=== PATIENT | female | born 1985 | race Native Hawaiian/Other Pacific Islander ===

== ENCOUNTER 2017-10-11 20:33 | Emergency (ER) | payer OTHER ==
[2017-10-11 23:17] LABS: BASOPHILS # (AUTO) 0.1 10^3/uL (0.0-0.1); BASOPHILS % (AUTO) 0.5 %; EOSINOPHILS # (AUTO) 0.1 10^3/uL (0.0-0.7); EOSINOPHILS % (AUTO) 0.5 %; HCT - HEMATOCRIT 37.8 % (37.0-47.0); HGB - HEMOGLOBIN 12.9 g/dL (12.0-16.0); LYMPHOCYTES # (AUTO) 2.3 10^3/uL (1.5-3.5); LYMPHOCYTES % (AUTO) 16.7 %; MEAN CORPUSCULAR HEMOGLOBIN 31.9 pg (27.0-31.0); MEAN CORPUSCULAR HGB CONC 34.1 g/dL (32.0-36.0); MEAN CORPUSCULAR VOLUME 93.4 fL (81.0-99.0); MEAN PLATELET VOLUME 9.1 fL (7.9-10.8); MONOCYTES # (AUTO) 1.2 10^3/uL (0.0-1.0); NEUTROPHILS % (AUTO) 73.3 %; RED BLOOD COUNT 4.05 10^6/uL (4.20-5.40); RED CELL DISTRIBUTION WIDTH 11.6 % (12.0-15.0); UNCORRECTED WHITE BLOOD COUNT 13.6 x10^3/uL; WHITE BLOOD COUNT 13.6 x10^3/uL (4.8-10.8)
[2017-10-11 23:27] LABS: ALBUMIN/GLOBULIN RATIO 1.4 (1.0-2.2); BILIRUBIN,TOTAL 0.5 mg/dL (0.2-1.0); CREATININE 0.6 mg/dL (0.4-1.0); POTASSIUM 3.4 mmol/L (3.5-5.0)
[2017-10-11] MEDS ORDERED: SODIUM CHLORIDE 0.9% 1,000 ML IV ONE (23:27)
[2017-10-11] MEDS ORDERED: ACETAMINOPHEN 500 MG TABLET PO STA (23:27)
[2017-10-11] MEDS ORDERED: ACETAMINOPHEN 500 MG TABLET PO ONE (23:33)
[2017-10-11 23:39] LABS: BILIRUBIN,URINE NEGATIVE (NEGATIVE); PH,URINE 6.5 PH (5.0-7.5)
[2017-10-11 23:50] LABS: HCG UR QUAL NEGATIVE; UA w/ MICROSCOPIC CHARGE YES; UR CULTURE IF IND NOT INDICATED; WBC,URINE 0-3 /HPF (0-5)
[2017-10-12] MEDS ORDERED: KETOROLAC 60 MG/2 ML VIAL IVP STA (00:07)
[2017-10-12] MEDS ORDERED: KETOROLAC 15 MG/ML VIAL ONE (00:15)
--- NOTE | 2017-10-12 00:17 | ED Physician Documentation ---
History of Present Illness - Stated complaint Stated Complaint: CHILLS,ACHES - Chief complaint Chief Complaint: General - History obtained from History obtained from: Patient, Family - History of Present Illness Timing: Yesterday - Additonal information Additional information: Patient is a 32 year old female with no significant past medical history who is presenting to the emergency department for pain in her axilla, fevers and chills. 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 Patient states that she went to lay down and when she woke up she was sweating and had the chills. Patient also states that she has had swelling and tenderness in her left armpit. Patient states that she just noticed it today. Review of Systems Constitutional: reports: Fever, Chills, Myalgias Ears: denies: Ear pain, Drainage/discharge, Tinnitus/ringing, Foreign body Nose: denies: Rhinorrhea / runny nose, Congestion Throat: denies: Dental pain / toothache, Sore throat Cardiac: denies: Chest pain / pressure, Palpitations Respiratory: denies: Cough, Wheezing GI: reports: Nausea. denies: Vomiting, Constipation, Diarrhea : denies: Dysuria, Frequency, Hesitancy Skin: denies: Rash, Lesions Musculoskeletal: reports: Back pain, Extremity pain, Joint pain. denies: Neck pain Neurologic: reports: Generalized weakness, Headache. denies: Focal weakness, Syncope, Seizure, Confused, Altered mental status, Head injury, LOC Immunocompromised: denies: Immunocompromised PD PAST MEDICAL HISTORY - Past Medical History Past Medical History: Yes Respiratory: Asthma Psych: Anxiety - Past Surgical History Past Surgical History: No - Present Medications Home Medications: Ambulatory Orders Medication Instructions Recorded Confirmed No Known Home Medications [No 10/11/17 10/11/17 Known Home Medications] - Allergies Allergies/Adverse Reactions: Allergies Allergy/AdvReac Type Severity Reaction Status Date / Time sulfamethoxazole Allergy Hives Verified 10/11/17 20:47 [From Bactrim] trimethoprim [From Bactrim] Allergy Hives Verified 10/11/17 20:47 - Social History Does the pt smoke?: Yes Smoking Status: Current every day smoker Does the pt drink ETOH?: Yes Does the pt have substance abuse?: No - Immunizations Immunizations are current?: Yes - POLST Patient has POLST: No PD ED PE NORMAL - Vitals Vital signs reviewed: Yes - General General: Alert and oriented X 3 - HEENT HEENT: Atraumatic, PERRL, Pharynx benign, Dentition benign - Neck Neck: Supple, no meningeal sign - Cardiac Cardiac: RRR, No murmur - Respiratory Respiratory: No respiratory distress, Clear bilaterally - Abdomen Abdomen: Soft, Non tender, Non distended - Derm Derm: Normal color, Warm and dry, No rash - Neuro Neuro: Alert and oriented X 3, No motor deficit, No sensory deficit, Normal speech Eye Opening: Spontaneous Motor: Obeys Commands Verbal: Oriented GCS Score: 15 - Psych Psych: Normal mood PD ED PE EXPANDED - Neck Neck: Adenopathy - Extremities Extremities: Tenderness (tenderness and mild swelling in left axillary region), Other Results - Vitals Vitals: Vital Signs - 24 hr 10/11/17 10/11/17 10/11/17 20:48 22:45 22:51 Temperature 37.3 C 37.6 C H Heart Rate 123 H 92 87 Respiratory 18 22 23 Rate Blood Pressure 127/82 H 113/77 112/73 O2 Saturation 100 99 100 10/12/17 10/12/17 00:12 00:27 Temperature 37.2 C 36.9 C Heart Rate 82 76 Respiratory 17 14 Rate Blood Pressure 112/51 L 112/58 L O2 Saturation 99 100 Oxygen O2 Source Room air - Labs Labs: Laboratory Tests 10/11/17 10/11/17 10/11/17 11:05 11:05 23:07 WBC 13.6 H RBC 4.05 L Hgb 12.9 Hct 37.8 MCV 93.4 MCH 31.9 H MCHC 34.1 RDW 11.6 L Plt Count 227 MPV 9.1 Neut # 10.0 H Lymph # 2.3 [place] # 1.2 H Eos # 0.1 Baso # 0.1 Absolute Nucleated RBC 0.00 Nucleated RBC % 0.0 Sodium 137 Potassium 3.4 L Chloride 105 Carbon Dioxide 22 Anion Gap 10.0 BUN 7 Creatinine 0.6 Estimated GFR (MDRD) 116 Glucose 106 H Calcium 9.0 Total Bilirubin 0.5 AST 19 ALT 22 Alkaline Phosphatase 34 L Total Protein 7.0 Albumin 4.1 Globulin 2.9 Albumin/Globulin Ratio 1.4 Lipase 26 Urine Color Urine Clarity Urine pH Ur Specific [place] Urine Protein Urine Glucose (UA) Urine Ketones Urine Occult Blood Urine Nitrite Urine Bilirubin Urine Urobilinogen Ur Leukocyte Esterase Urine RBC Urine WBC Ur Squamous Epith Cells Urine Bacteria Ur Microscopic Review Urine Culture Comments Urine HCG, Qual Influenza A (Rapid) Negative Influenza B (Rapid) Negative Influenza Types A,B Ag - 10/11/17 23:14 WBC RBC Hgb Hct MCV MCH MCHC RDW Plt Count MPV Neut # Lymph # [place] # Eos # Baso # Absolute Nucleated RBC Nucleated RBC % Sodium Potassium Chloride Carbon Dioxide Anion Gap BUN Creatinine Estimated GFR (MDRD) Glucose Calcium Total Bilirubin AST ALT Alkaline Phosphatase Total Protein Albumin Globulin Albumin/Globulin Ratio Lipase Urine Color YELLOW Urine Clarity CLEAR Urine pH 6.5 Ur Specific [place] <=1.005 Urine Protein NEGATIVE Urine Glucose (UA) NEGATIVE Urine Ketones NEGATIVE Urine Occult Blood SMALL H Urine Nitrite NEGATIVE Urine Bilirubin NEGATIVE Urine Urobilinogen 0.2 (NORMAL) Ur Leukocyte Esterase NEGATIVE Urine RBC 0-5 Urine WBC 0-3 Ur Squamous Epith Cells RARE Squamous Urine Bacteria None Seen Ur Microscopic Review INDICATED Urine Culture Comments NOT INDICATED Urine HCG, Qual NEGATIVE Influenza A (Rapid) Influenza B (Rapid) Influenza Types A,B Ag PD MEDICAL DECISION MAKING - ED course Complexity details: reviewed old records, reviewed results, re-evaluated patient , considered differential, d/w patient, d/w family ED course: Patient was seen and examined at bedside. IV access was gained and labs were drawn. IV fluid bolus was started. Patient was treated with tylenol. Patient' s diagnostics were relatively unremarkable. Patient stated that she still had a headache, and was treated with toradol which resolved the pain. Patient's symptoms were likely viral in nature. patient required no further work up and was stable for discharge with outpatient follow up. Departure - Departure Disposition: 01 Home, Self Care Clinical Impression: Viral syndrome Condition: Good Instructions: ED Viral Syndrome Follow-Up: Devi Avina ARNP [Primary Care Provider] - Comments: Your symptoms today are likely secondary to a virus. It is very important that you stay well hydrated and get plenty of rest. You should drink at least 80oz of water/gatorade a day. you should alternate between motrin and tylenol as needed for headaches or fevers. You should follow up with your doctor if your symptoms persist more than the next few days. You can return to the emergency department at any time for new, worsening or uncontrollable symptoms. Forms: Activity restrictions Discharge Date/Time: 10/12/17 00:28
[2017-10-12 00:28] VITALS: BP 112/58
== END 2017-10-12 00:28 | disposition home or self-care (01) ==
LOC: ED 20:33
DX: B34.9 Viral infection, unspecified (principal); F17.200 Nicotine dependence, unspecified, uncomplicated
CPT/HCPCS: 36415; 80053; 81001; 81025; 83690; 85025; 87275; 87276; 96361; 96374; 99284; A9270; 81003; 87086

== ENCOUNTER 2018-06-28 19:20 | Emergency (ER) | payer OTHER ==
[2018-06-28 20:16] LABS: BILIRUBIN,URINE NEGATIVE (NEGATIVE); GLUCOSE, URINE (UA) NEGATIVE (NEGATIVE); KETONES,URINE (UA) NEGATIVE (NEGATIVE); LEUKOCYTE ESTERASE, URINE MODERATE (NEGATIVE); NITRITE,URINE NEGATIVE (NEGATIVE); OCCULT BLOOD,URINE MODERATE (NEGATIVE); PROTEIN,URINE NEGATIVE (NEGATIVE); UROBILINOGEN,URINE 0.2 (NORMAL) E.U./dL (NORMAL)
[2018-06-28 20:28] LABS: CLARITY,URINE HAZY (CLEAR); HCG UR QUAL NEGATIVE
[2018-06-28 20:29] LABS: BACTERIA,URINE Many /HPF (None Seen); RBC,URINE TNTC /HPF (0-5); SQUAMOUS EPITHELIAL CELL,UR FEW Squamous (<= Few)
--- NOTE | 2018-06-28 20:47 | ED Physician Documentation ---
PD HPI FEMALE - Stated complaint Stated Complaint: FEMALE - Chief complaint Chief Complaint: UTI - History obtained from History obtained from: Patient - History of Present Illness Timing - onset: How many hours ago (2) Timing - details: Abrupt onset Associated symptoms: Dysuria, Urinary frequency. No: Fever Contributing factors: No: Recently seen: Not recently seen - Additional information Additional information: recent UTI, completed 5 days keflex 3 days ago, symptoms returned 2 hours [employer] Review of Systems Constitutional: denies: Fever GI: reports: Reviewed and negative : reports: Dysuria, Frequency. denies: Vaginal bleeding, Now EGA PD PAST MEDICAL HISTORY - Past Medical History Respiratory: Asthma Psych: Anxiety - Past Surgical History Past Surgical History: No - Present Medications Home Medications: Ambulatory Orders Medication Instructions Recorded Confirmed Ciprofloxacin HCl [Cipro] 500 mg PO BID #13 tablet 06/28/18 Phenazopyridine [Pyridium] 200 mg PO TID 3 Days tablet 06/28/18 - Allergies Allergies/Adverse Reactions: Allergies Allergy/AdvReac Type Severity Reaction Status Date / Time nitrofurantoin Allergy Unknown Verified 06/28/18 19:54 sulfamethoxazole Allergy Hives Verified 10/11/17 20:47 [From Bactrim] trimethoprim [From Bactrim] Allergy Hives Verified 10/11/17 20:47 - Social History Does the pt smoke?: Yes Smoking Status: Current every day smoker Does the pt drink ETOH?: Yes Does the pt have substance abuse?: No - Immunizations Immunizations are current?: Yes - POLST Patient has POLST: No PD ED PE NORMAL - Vitals Vital signs reviewed: Yes - General General: Alert and oriented X 3, No acute distress, Well developed/nourished - Abdomen Abdomen: Soft, Non tender - Back Back: No CVA TTP Results - Vitals Vitals: Oxygen O2 Source Room air - Labs Labs: Microbiology 06/28/18 20:00 Urine Culture - Final Urine,Clean Catch Escherichia Coli Laboratory Tests 06/28/18 20:00 Urine Color YELLOW Urine Clarity HAZY Urine pH 6.0 Ur Specific [place] <=1.005 Urine Protein NEGATIVE Urine Glucose (UA) NEGATIVE Urine Ketones NEGATIVE Urine Occult Blood MODERATE H Urine Nitrite NEGATIVE Urine Bilirubin NEGATIVE Urine Urobilinogen 0.2 (NORMAL) Ur Leukocyte Esterase MODERATE H Urine RBC TNTC H Urine WBC >25 H Ur Squamous Epith Cells FEW Squamous Urine Bacteria Many H Ur Microscopic Review INDICATED Urine Culture Comments INDICATED Urine HCG, Qual NEGATIVE PD MEDICAL DECISION MAKING - ED course Complexity details: reviewed results, considered differential, d/w patient - Sepsis Event Vital Signs: Oxygen O2 Source Room air Departure - Departure Disposition: Home, Self Care Clinical Impression: Urinary tract infection Condition: Good Instructions: ED UTI Cystitis Female Follow-Up: ASHLEY Wetzel [Provider Group] Prescriptions: Ciprofloxacin HCl [Cipro] 500 mg PO BID #13 tablet Phenazopyridine [Pyridium] 200 mg PO TID 3 Days tablet Discharge Date/Time: 06/28/18 21:24
[2018-06-28] MEDS ORDERED: PHENAZOPYRIDINE 100 MG TABLET PO STA ×2 (21:04→21:05)
[2018-06-28] MEDS ORDERED: LIDOCAINE 1% 2 ML VIAL SUBQ ONE (21:04)
[2018-06-28] MEDS ORDERED: cefTRIAXone 1 GM VIAL IM STA (21:04)
[2018-06-28] MEDS ORDERED: CIPROFLOXACIN 250 MG TABLET PO STA (21:04)
[2018-06-28 21:22] VITALS: BP 122/78
== END 2018-06-28 21:24 | disposition home or self-care (01) ==
LOC: ED 19:20
DX: N39.0 Urinary tract infection, site not specified (principal); F17.200 Nicotine dependence, unspecified, uncomplicated
CPT/HCPCS: 81001; 81025; 87086; 87181; 96372; 99283; A9270; 81003

== ENCOUNTER 2019-09-18 21:25 | Emergency (ER) | payer OTHER ==
[2019-09-18 21:39] VITALS: BP 130/86
--- NOTE | 2019-09-18 21:53 | ED Physician Documentation ---
PD HPI HEENT - Stated complaint Stated Complaint: BUG IN EAR? EAR PX - Chief complaint Chief Complaint: Heent - History obtained from History obtained from: Patient - History of Present Illness Timing - onset: Last night Timing - details: Abrupt onset Pain level now: 0 Location: Left ear Similar symptoms before: Has not had sx before - Additional information Additional information: last night while asleep in bed, patient was awoken by sudden onset sensation of something in her left ear. She felt as though it was moving, s/o insect. She put olive oil in her left ear with the intention of "drowning" the possible insect, and this had the desired effect of stopping the sensation of a moving FB in the ear. She presents at this time to have ear examined due to concern that there might still be something in the ear canal. Review of Systems Ears: reports: Foreign body (resolved). denies: Loss of hearing, Ear pain, Drainage/discharge, Tinnitus/ringing PD PAST MEDICAL HISTORY - Past Medical History Respiratory: Asthma Psych: Anxiety - Past Surgical History Past Surgical History: No - Present Medications Home Medications: Ambulatory Orders Medication Instructions Recorded Confirmed Tretinoin Microspheres [Retin-A 20 gm TP 09/18/19 Micro] - Allergies Allergies/Adverse Reactions: Allergies Allergy/AdvReac Type Severity Reaction Status Date / Time nitrofurantoin Allergy Unknown Verified 09/18/19 21:39 sulfamethoxazole Allergy Hives Verified 09/18/19 21:39 [From Bactrim] trimethoprim [From Bactrim] Allergy Hives Verified 09/18/19 21:39 - Social History Does the pt smoke?: Yes Smoking Status: Current every day smoker Does the pt drink ETOH?: Yes Does the pt have substance abuse?: No - Immunizations Immunizations are current?: Yes - POLST Patient has POLST: No PD ED PE NORMAL - Vitals Vital signs reviewed: Yes - General General: Alert and oriented X 3, No acute distress, Well developed/nourished - HEENT HEENT: Ears normal Results - Vitals Vitals: Vital Signs - 24 hr 09/18/19 21:35 Temperature 36.6 C Heart Rate 87 Respiratory 18 Rate Blood Pressure 130/86 H O2 Saturation 100 Oxygen O2 Source Room air PD MEDICAL DECISION MAKING - ED course Complexity details: considered differential, d/w patient ED course: No insect or other FB in left ear canal; there is good visualization of the entire canal and TM. Departure - Departure Disposition: 01 Home, Self Care Clinical Impression: Foreign body sensation in left ear canal Condition: Good Instructions: ED Foreign Body Ear Canal Discharge Date/Time: 09/18/19 22:20
== END 2019-09-18 22:20 | disposition home or self-care (01) ==
LOC: ED 21:25
DX: T16.2XXA Foreign body in left ear, initial encounter (principal); X58.XXXA Exposure to other specified factors, initial encounter; F17.200 Nicotine dependence, unspecified, uncomplicated
CPT/HCPCS: 99281; 99282

== ENCOUNTER 2023-10-03 08:00 | Outpatient (CLI) | payer OTHER ==
[2023-10-04 14:25] LABS: CHLAMYDIA TRACHOMATIS DNA NEGATIVE (NEGATIVE); NEISSERIA GONORRHOEAE DNA NEGATIVE (NEGATIVE); TRICHOMONAS VAGINALIS DNA NEGATIVE (NEGATIVE)
== END 2023-10-03 23:59 | disposition home or self-care (01) ==
LOC: LAB.N 08:00
PROVIDERS: ATTEND Registered Nurse
DX: N89.8 Other specified noninflammatory disorders of vagina (principal)
CPT/HCPCS: 87255; 87491; 87529; 87591; 87661

== ENCOUNTER 2023-10-04 11:21 | Outpatient (CLI) | payer OTHER ==
[2023-10-05 07:10] LABS: RPR Non Reactive (Non Reactive)
[2023-10-05 08:10] LABS: HCV AB Non Reactive (Non Reactive); HIV SCREEN 4TH GENERATION Non Reactive (Non Reactive)
[2023-10-05 17:08] LABS: HSV 2 IGG TYPE SPEC 0.95 index (0.00-0.90)
== END 2023-10-04 11:22 | disposition home or self-care (01) ==
LOC: LAB.N 11:21
PROVIDERS: ATTEND Registered Nurse
DX: N89.8 Other specified noninflammatory disorders of vagina (principal)
CPT/HCPCS: 36415; 86592; 86695; 86696; 86803; 87389

== ENCOUNTER 2024-05-03 19:20 | Emergency (ER) | payer OTHER ==
[2024-05-03 19:42] VITALS: BP 135/87; O2SAT 100
--- NOTE | 2024-05-03 20:00 | ED Physician Documentation ---
PD HPI URI - Stated complaint Stated Complaint: COUGH - Chief complaint Chief Complaint: Resp - History obtained from History obtained from: Patient - Additional information Additional information: She has a history of asthma, does not have to use an inhaler much and no maintenance medications. She been sick for about 4 days with cough productive of clear sputum and mild shortness of breath. No fevers. She has a little bit of a sore throat with it. She was exposed to COVID at work. PD PAST MEDICAL HISTORY - Past Medical History Respiratory: Asthma Psych: Anxiety - Past Surgical History Past Surgical History: No - Present Medications Home Medications: Ambulatory Orders Medication Instructions Recorded Confirmed Tretinoin Microspheres [Retin-A 20 gm TP 09/18/19 Micro] - Allergies Allergies/Adverse Reactions: Allergies Allergy/AdvReac Type Severity Reaction Status Date / Time nitrofurantoin Allergy Unknown Verified 05/03/24 19:32 sulfamethoxazole Allergy Hives Verified 05/03/24 19:32 [From Bactrim] trimethoprim [From Bactrim] Allergy Hives Verified 05/03/24 19:32 - Social History Does the pt smoke?: Yes Smoking Status: Current every day smoker Does the pt drink ETOH?: Yes Does the pt have substance abuse?: No - Immunizations Immunizations are current?: Yes - POLST Patient has POLST: No PD ED PE NORMAL - Vitals Vital signs reviewed: Yes - General General: Alert and oriented X 3, No acute distress - Cardiac Cardiac: RRR, No murmur - Respiratory Respiratory: No respiratory distress, Clear bilaterally - Abdomen Abdomen: Non tender - Neuro Neuro: Alert and oriented X 3 Results - Vitals Vitals: Vital Signs - 24 hr 05/03/24 19:33 Temperature 36.8 C Heart Rate 105 H Respiratory 20 Rate Blood Pressure 135/87 H O2 Saturation 100 Oxygen O2 Source Room air - Labs Labs: Laboratory Tests 05/03/24 19:30 Nasal Adenovirus (PCR) NOT DETECTED Nasal B. parapertussis DNA (PCR) NOT DETECTED Nasal Coronavir 229E PCR NOT DETECTED Nasal Coronavir HKU1 PCR NOT DETECTED Nasal Coronavir NL63 PCR NOT DETECTED Nasal Coronavir OC43 PCR NOT DETECTED Nasal Enterovir/Rhinovir PCR NOT DETECTED Nasal Influenza B PCR NOT DETECTED Nasal Influenza A PCR NOT DETECTED Nasal Parainfluen 1 PCR NOT DETECTED Nasal Parainfluen 2 PCR NOT DETECTED Nasal Parainfluen 3 PCR NOT DETECTED Nasal Parainfluen 4 PCR NOT DETECTED Nasal RSV (PCR) NOT DETECTED Nasal B.pertussis DNA PCR NOT DETECTED Nasal C.pneumoniae (PCR) NOT DETECTED [place] Human Metapneumo PCR NOT DETECTED Nasal M.pneumoniae (PCR) NOT DETECTED Nasal SARS-CoV-2 (PCR) NOT DETECTED - Rads (name of study) 2 view chest x-ray is clear Relevant Findings:: Final report received, EMP independent interpretation of test PD Medical Decision Making - ED course ED course: She presents with what sounds like a viral URI. Chest x-ray is clear and there is no evidence of bacterial infection clinically or radiographically. Conservative care was advised. She was discharged with [employer] panel pending which was negative for the identifiable viruses on that panel. Departure - Departure Disposition: 01 Home, Self Care Clinical Impression: Viral syndrome Upper respiratory tract infection Qualifiers: URI type: unspecified viral URI Qualified Code(s): J06.9 - Acute upper respiratory infection, unspecified Condition: Good Record reviewed to determine appropriate education?: Yes Instructions: ED Upper Resp Infec No Abx Tx Comments: Your chest x-ray is looking clear. There is a [employer] respiratory panel pending. We will call you if it is positive for COVID, it may show a different virus in which case you can look up the results online by going to the hospital website and signing up for the patient portal. Return for new or worsening symptoms. Follow-up with your doctor if not better in a week. Forms: PCP List Discharge Date/Time: 05/03/24 20:32
[2024-05-03 20:38] LABS: B. PARAPERTUSSIS- RESP PCR PAN NOT DETECTED; B. PERTUSSIS- RESP PCR PANEL NOT DETECTED; C. PNEUMONIAE- RESP PCR PANEL NOT DETECTED; CORONAVIRUS 229E-RESP PCR NOT DETECTED; CORONAVIRUS HKU1-RESP PCR NOT DETECTED; CORONAVIRUS NL63-RESP PCR NOT DETECTED; CORONAVIRUS OC43-RESP PCR NOT DETECTED; HUMAN METAPNEUMOVIRUS NOT DETECTED; INFLUENZA A- RESP PCR PANEL NOT DETECTED; INFLUENZA B - RESP PCR PANEL NOT DETECTED; M. PNEUMONIAE- RESP PCR PANEL NOT DETECTED; PARAINFLUENZA VIRUS 1 NOT DETECTED; PARAINFLUENZA VIRUS 2 NOT DETECTED; PARAINFLUENZA VIRUS 3 NOT DETECTED; PARAINFLUENZA VIRUS 4 NOT DETECTED; RHINOVIRUS/ENTEROVIRUS NOT DETECTED; RSV- RESP PCR PANEL NOT DETECTED; SARS-CoV-2 -RESP PCR PANEL NOT DETECTED
--- NOTE | 2024-05-03 20:49 | XRAY Report ---
PROCEDURE: Chest 2V INDICATIONS: cough TECHNIQUE: 2 views of the chest were acquired. COMPARISON: None. FINDINGS: Surgical changes and devices: None. Lungs and pleura: No pleural effusions or pneumothorax. Lungs are clear. Mediastinum: Mediastinal contours appear normal. Heart size is normal. Bones and chest wall: No suspicious bony lesions. Overlying soft tissues appear unremarkable. IMPRESSION: No acute cardiopulmonary process. Reviewed by: Obey Christina MD on 05/03/2024 8:48 PM PDT Approved by: Obey Christina MD on 05/03/2024 8:48 PM PDT Station ID: [id number]
== END 2024-05-03 20:32 | disposition home or self-care (01) ==
LOC: ED 19:20
DX: J06.9 Acute upper respiratory infection, unspecified (principal); F17.200 Nicotine dependence, unspecified, uncomplicated
CPT/HCPCS: 87633; 99283; 99284

== ENCOUNTER 2024-08-20 20:37 | Emergency (ER) | payer OTHER ==
--- NOTE | 2024-08-20 20:49 | ED Physician Documentation ---
History of Present Illness - Stated complaint Stated Complaint: VOMITING/D - Chief complaint Chief Complaint: General - Additonal information Additional information: 38-year-old female presents emergency department for flulike symptoms that have been ongoing now for about maybe 12 hours. 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 Patient says that she does not feel that she is well enough to go to work tomorrow and has to have a work note to not go to work which is why she is here today. No history of immunocompromise she has no emesis she also does report that she has been suffering from a lot of anxiety recently no chest pain no shortness of breath no fevers. PD PAST MEDICAL HISTORY - Past Medical History Past Medical History: No Respiratory: Asthma Psych: Anxiety - Past Surgical History Past Surgical History: No - Present Medications Home Medications: Ambulatory Orders Medication Instructions Recorded Confirmed Tretinoin Microspheres [Retin-A 20 gm TP 09/18/19 Micro] - Allergies Allergies/Adverse Reactions: Allergies Allergy/AdvReac Type Severity Reaction Status Date / Time nitrofurantoin Allergy Unknown Verified 08/20/24 20:42 sulfamethoxazole Allergy Hives Verified 08/20/24 20:42 [From Bactrim] trimethoprim [From Bactrim] Allergy Hives Verified 08/20/24 20:42 - Social History Does the pt smoke?: Yes Smoking Status: Current every day smoker Does the pt drink ETOH?: Yes Does the pt have substance abuse?: No - Immunizations Immunizations are current?: Yes - POLST Patient has POLST: No PD ED PE NORMAL - Vitals Vital signs reviewed: Yes - General General: Alert and oriented X 3, No acute distress, Well developed/nourished - Cardiac Cardiac: RRR - Respiratory Respiratory: No respiratory distress, Clear bilaterally - Abdomen Abdomen: Normal bowel sounds, Soft, Non tender, Non distended, No organomegaly - Derm Derm: Normal color, Warm and dry, No rash Results - Vitals Vitals: Vital Signs - 24 hr 08/20/24 20:42 Temperature 36.2 C L Heart Rate 90 Respiratory 16 Rate Blood Pressure 126/84 H O2 Saturation 99 Oxygen O2 Source Room air - Labs Labs: Laboratory Tests 08/20/24 08/20/24 20:54 20:54 Urine Color YELLOW Urine Clarity CLEAR Urine pH 6.0 Ur Specific [place] >=1.030 H Urine Protein NEGATIVE Urine Glucose (UA) NEGATIVE Urine Ketones NEGATIVE Urine Occult Blood MODERATE H Urine Nitrite NEGATIVE Urine Bilirubin NEGATIVE Urine Urobilinogen 0.2 (NORMAL) Ur Leukocyte Esterase NEGATIVE Urine RBC 0-5 Urine WBC 0-3 Ur Squamous Epith Cells MOD Squamous H Urine Bacteria Rare Ur Microscopic Review INDICATED Urine Culture Comments NOT INDICATED Nasal Adenovirus (PCR) NOT DETECTED Nasal B. parapertussis DNA (PCR) NOT DETECTED Nasal Coronavir 229E PCR NOT DETECTED Nasal Coronavir HKU1 PCR NOT DETECTED Nasal Coronavir NL63 PCR NOT DETECTED Nasal Coronavir OC43 PCR NOT DETECTED Nasal Enterovir/Rhinovir PCR NOT DETECTED Nasal Influenza B PCR NOT DETECTED Nasal Influenza A PCR NOT DETECTED Nasal Parainfluen 1 PCR NOT DETECTED Nasal Parainfluen 2 PCR NOT DETECTED Nasal Parainfluen 3 PCR NOT DETECTED Nasal Parainfluen 4 PCR NOT DETECTED Nasal RSV (PCR) NOT DETECTED Nasal B.pertussis DNA PCR NOT DETECTED Nasal C.pneumoniae (PCR) NOT DETECTED [place] Human Metapneumo PCR NOT DETECTED Nasal M.pneumoniae (PCR) NOT DETECTED Nasal SARS-CoV-2 (PCR) NOT DETECTED PD Medical Decision Making - ED course ED course: 38-year-old female presents emergency department for flulike symptoms. Urinalysis was complete to rule out the possibility of this being related to urinary tract infection which was found to be unremarkable. Respiratory swab was also sent for further evaluation was found to also be unremarkable. Patient has very mild symptoms and says that she has been suffering from a lot of anxiety she has been afebrile for me here in the emergency department and says that she does not think she has had a fever at home I gave her a work note to have the day off of work tomorrow and to follow-up with primary care provider to rest for the next 24 hours to drink plenty of fluids and eat a healthy well- balanced diet return precautions given patient safe for discharge at this time. Departure - Departure Disposition: 01 Home, Self Care Clinical Impression: Viral syndrome Instructions: ED Viral Syndrome Comments: Thank you for trusting us with your care. It appears that you have some sort of virus with her GI or respiratory. We have swabbed you for common respiratory viruses and I will call you if it comes back positive for anything if you do not hear from you feel free to call back to the emergency department to check on your swab or you can assume that it was negative. You are okay to go back to work after you have been 24 hours without any fevers without any antifever medication. Stick with a gentle diet on your stomach such as chicken broth and toast drink plenty of fluids and eat a healthy well-balanced diet as you are recovering from this virus. Please come back to the ER if you are having fevers lasting longer than 5 days shortness of breath, chest pain, or any other concerning emergent symptoms. Forms: PCP List, Activity restrictions Discharge Date/Time: 08/20/24 21:38
[2024-08-20 20:53] VITALS: BP 126/84; O2SAT 99
[2024-08-20 21:11] LABS: BILIRUBIN,URINE NEGATIVE (NEGATIVE); GLUCOSE, URINE (UA) NEGATIVE (NEGATIVE); KETONES,URINE (UA) NEGATIVE (NEGATIVE); LEUKOCYTE ESTERASE, URINE NEGATIVE (NEGATIVE); NITRITE,URINE NEGATIVE (NEGATIVE); OCCULT BLOOD,URINE MODERATE (NEGATIVE); PROTEIN,URINE NEGATIVE (NEGATIVE); UROBILINOGEN,URINE 0.2 (NORMAL) E.U./dL (NORMAL)
[2024-08-20 21:17] LABS: CLARITY,URINE CLEAR (CLEAR)
[2024-08-20 21:42] LABS: BACTERIA,URINE Rare /HPF (None Seen); RBC,URINE 0-5 /HPF (0-5); SQUAMOUS EPITHELIAL CELL,UR MOD Squamous (<= Few); WBC,URINE 0-3 /HPF (0-5)
[2024-08-20 22:01] LABS: B. PARAPERTUSSIS- RESP PCR PAN NOT DETECTED; B. PERTUSSIS- RESP PCR PANEL NOT DETECTED; C. PNEUMONIAE- RESP PCR PANEL NOT DETECTED; CORONAVIRUS 229E-RESP PCR NOT DETECTED; CORONAVIRUS HKU1-RESP PCR NOT DETECTED; CORONAVIRUS NL63-RESP PCR NOT DETECTED; CORONAVIRUS OC43-RESP PCR NOT DETECTED; HUMAN METAPNEUMOVIRUS NOT DETECTED; INFLUENZA A- RESP PCR PANEL NOT DETECTED; INFLUENZA B - RESP PCR PANEL NOT DETECTED; M. PNEUMONIAE- RESP PCR PANEL NOT DETECTED; PARAINFLUENZA VIRUS 1 NOT DETECTED; PARAINFLUENZA VIRUS 2 NOT DETECTED; PARAINFLUENZA VIRUS 3 NOT DETECTED; PARAINFLUENZA VIRUS 4 NOT DETECTED; RHINOVIRUS/ENTEROVIRUS NOT DETECTED; RSV- RESP PCR PANEL NOT DETECTED; SARS-CoV-2 -RESP PCR PANEL NOT DETECTED
== END 2024-08-20 21:38 | disposition home or self-care (01) ==
LOC: ED 20:37
DX: B34.9 Viral infection, unspecified (principal); F17.200 Nicotine dependence, unspecified, uncomplicated
CPT/HCPCS: 81001; 81003; 87086; 87633; 99282; 99283